=== PATIENT | male | born 1970 ===

== ENCOUNTER 2017-10-25 23:57 | Emergency (ER) | payer OTHER ==
[2017-10-26 00:09] VITALS: BMI 30.2
[2017-10-26 00:10] VITALS: TEMP 98.4
[2017-10-26] MEDS ORDERED: Labetalol 5 mg/ml Inj 20ML IVP STA (00:30)
[2017-10-26 01:10] LABS: BASO # 0.1 K/uL (0.0-0.2); BASO % 0.7 % (0.0-2.0); EOS # 0.2 K/uL (0.0-0.7); EOS % 2.8 % (0.0-4.0); HEMOGLOBIN 16.4 g/dL (12.0-18.0); LYMPH # 2.2 K/uL (1.0-4.3); MEAN CELL VOLUME 85.6 fl (80.0-94.0); MEAN CORPUSCULAR HEMOGLOBIN 29.2 pg (27.0-31.0); MEAN CORPUSCULAR HGB CONC 34.1 g/dL (33.0-37.0); MEAN PLATELET VOLUME 10.3 fl (7.2-11.7); MONO # 0.6 K/uL (0.0-0.8); MONO % 6.9 % (0.0-10.0); NEUT % 62.6 % (50.0-75.0); NRBC % 0.1 % (0.0-0.0); RBC 5.62 Mil/uL (4.40-5.90); RED CELL DISTRIBUTION WIDTH 13.1 % (11.5-14.5)
[2017-10-26 01:16] LABS: ALB/GLOB RATIO 1.3 (1.0-2.1); ALBUMIN 4.6 g/dL (3.5-5.0); ALT/SGPT 44 U/L (21-72); AST/SGOT 28 U/L (17-59); BLOOD UREA NITROGEN 18 mg/dl (9-20); GFR AFRICAN-AMERICAN > 60; GFR NON-AFRICAN AMERICAN > 60
[2017-10-26 01:23] VITALS: O2SAT 99
[2017-10-26 01:33] LABS: INR 0.9 (0.9-1.2); PARTIAL THROMBOPLASTIN TIME 35.1 Seconds (25.6-37.1); PROTHROMBIN TIME 10.2 Seconds (9.8-13.1)
[2017-10-26 02:28] VITALS: BP 158/97; PULSE 70; RESP 17
--- NOTE | 2017-10-26 02:32 | ED PDOC ---
HPI: General Adult Time Seen by Provider: 10/26/17 00:18 Chief Complaint (Nursing): Weakness/Neurological Deficit Chief Complaint (Provider): Left facial droop History Per: Patient History/Exam Limitations: no limitations Onset/Duration Of Symptoms: Hrs (x10) Current Symptoms Are (Timing): Still Present Additional Complaint(s): 47 year old male, with a past medical history of HTN and diabetes non- compliant with medication for past 1.5 years, who presents to the ED for evaluation of left facial droop associated with numbness since 14:00. Patient also reports trouble closing left eye. Denies any visual changes, headache, weakness, disturbances in gait, trouble with speech, or difficulty swallowing. PMD: None provided Past Medical History Reviewed: Historical Data, Nursing Documentation, Vital Signs Vital Signs: Last Vital Signs Temp 98.4 F 10/26/17 00:20 Pulse 70 10/26/17 02:27 Resp 17 10/26/17 02:27 BP 158/97 H 10/26/17 02:27 Pulse Ox 99 10/26/17 02:53 - Medical History PMH: Diabetes, HTN Denies: Chronic Kidney Disease - Surgical History Surgical History: No Surg Hx - Family History Family History: States: Unknown Family Hx - Social History Current smoker - smoking cessation education provided: No Alcohol: None Drugs: Denies - Home Medications Home Medications: Ambulatory Orders Medication Instructions Recorded Methylprednisolone [Medrol Dosepak] 4 mg PO ASDIR #1 pkg 10/26/17 Peg 400/Hypromellose/Glycerin 2 drop OS Q4 PRN #15 ml 10/26/17 [Artificial Tears Drops] Valacyclovir HCl [Valtrex] 1,000 mg PO TID #21 tablet 10/26/17 amLODIPine [Norvasc] 10 mg PO QAM #10 tab 10/26/17 metFORMIN [glucOPHAGE] 500 mg PO BID #20 tab 10/26/17 - Allergies Allergies/Adverse Reactions: Allergies Allergy/AdvReac Type Severity Reaction Status Date / Time No Known Allergies Allergy Verified 10/26/17 00:21 Review of Systems ROS Statement: Except As Marked, All Systems Reviewed And Found Negative (as per HPI) Eyes: Negative for: Vision Change Neurological: Positive for: Numbness, Other (left facial droop). Negative for: Weakness, Headache Physical Exam - Reviewed Nursing Documentation Reviewed: Yes Vital Signs Reviewed: Yes - Physical Exam Appears: Positive for: Non-toxic, No Acute Distress Head Exam: Positive for: ATRAUMATIC, NORMAL INSPECTION, NORMOCEPHALIC Skin: Positive for: Normal Color, Warm, Dry. Negative for: Rash Eye Exam: Positive for: EOMI, Normal appearance, PERRL Neck: Positive for: Normal, Painless ROM, Supple Cardiovascular/Chest: Positive for: Regular Rate, Rhythm. Negative for: Murmur Respiratory: Positive for: Normal Breath Sounds. Negative for: Respiratory Distress Gastrointestinal/Abdominal: Positive for: Normal Exam, Bowel Sounds, Soft. Negative for: Tenderness Back: Positive for: Normal Inspection. Negative for: L CVA Tenderness, R CVA Tenderness, Vertebral Tenderness Extremity: Positive for: Normal ROM. Negative for: Pedal Edema, Deformity Neurologic/Psych: Positive for: Alert, packing and shipping clerk II-XII, Oriented (x3), Facial Droop ( left, asymmetric smile, flattening of nasolabial fold). Negative for: Motor/ Sensory Deficits, Cerebellar Tests, Gait, Aphasia - Laboratory Results Result Diagrams: 10/26/17 01:03 10/26/17 01:03 - ECG O2 Sat by Pulse Oximetry: 99 (RA) Pulse Ox Interpretation: Normal - Critical Care Total Time (In Min): 30 Medical Decision Making Medical Decision Making: Time: 00:21 Initial Impression: 47 year old male with left facial droop consistent with Riley 's palsy Plan: --CT Head w/o contrast --EKG --CMP --TSH --CBC w/ differential --Erythrocyte sedimentation --PTT --PT --Trandate 20 mg IVP --Heplock insertion --Accucheck --[place] --RPR --Reevaluation --Patient's blood pressure is significantly deranged. Time: 01:08 CT Head Findings: Brain: Cerebral and cerebellar volume loss. Mild Patchy hypodensity is seen in the periventricular and subcortical white matter. No hemorrhage. Ventricles: Unremarkable. No ventriculomegaly. Bones/joints: Unremarkable. No acute fracture. Soft tissues: Unremarkable. Sinuses: Unremarkable. No acute sinusitis. Mastoid air cells: Unremarkable. No mastoid effusion. Other findings: Minimal patchy Perez disease. IMPRESSION: No evidence of an acute intracranial hemorrhage, midline shift or mass effect is identified. Changes of an acute infarct may not be visible on CT for up to 24 to 48 hours. If this is of clinical concern, a follow up examination and/or MRI may be of benefit. Time: 02:15 Clinical Impression: Riley's palsy and hypertensive urgency --Solu-Medrol --Labs reviewed and no clinically significant abnormalities were found. Blood pressure shows marked improvement. Patient will be discharged with Rx for Valtrex. Glucophage, Norvasc, Medrol, and artificial teardrops. Patient was advised to follow up with PMD. Return precautions were provided. Scribe Attestation: Documented by Red Logan, acting as a scribe for Omar Mccoy MD. Provider Scribe Attestation: All medical record entries made by the Scribe were at my direction and personally dictated by me. I have reviewed the chart and agree that the record accurately reflects my personal performance of the history, physical exam, medical decision making, and the department course for this patient. I have also personally directed, reviewed, and agree with the discharge instructions and disposition. Disposition - Clinical Impression Clinical Impression: Riley's palsy, Diabetes mellitus, Accelerated hypertension - Patient ED Disposition Is Patient to be Admitted: No Counseled Patient/Family Regarding: Studies Performed, Diagnosis, Need For Followup, Rx Given - Disposition Referrals: Manish Castaneda MD [Staff Provider] - Disposition: Routine/Home Disposition Time: 02:15 Condition: STABLE Prescriptions: amLODIPine [Norvasc] 10 mg PO QAM #10 tab metFORMIN [glucOPHAGE] 500 mg PO BID #20 tab Methylprednisolone [Medrol Dosepak] 4 mg PO ASDIR #1 pkg Peg 400/Hypromellose/Glycerin [Artificial Tears Drops] 2 drop OS Q4 PRN #15 ml PRN Reason: Dry Eyes Valacyclovir HCl [Valtrex] 1,000 mg PO TID #21 tablet Instructions: Riley Palsy (ED), Hypertension (ED) Forms: [facility] (Danish) Print Language: DANISH
--- NOTE | 2017-10-26 08:56 | CT ---
PROCEDURE: CT HEAD WITHOUT CONTRAST. HISTORY: facial droop COMPARISON: None available. TECHNIQUE: Axial computed tomography images were obtained through the head/brain without intravenous contrast. Radiation dose: Total exam DLP = 848.46 mGy-cm. This CT exam was performed using one or more of the following dose reduction techniques: Automated exposure control, adjustment of the mA and/or kV according to patient size, and/or use of iterative reconstruction technique. FINDINGS: HEMORRHAGE: No intracranial hemorrhage. BRAIN: Normal mendez-white matter differentiation and density are appreciated throughout the cerebrum and cerebellum with the brainstem appearing unremarkable as well. There is no mass effect. There is no suspicious extra-axial fluid collection and the midline brain anatomy appears diffusely unremarkable. VENTRICLES: Unremarkable. No hydrocephalus. CALVARIUM: Unremarkable. PARANASAL SINUSES: Limited mucosal inflammatory changes seen affecting multiple bilateral ethmoid air cells as well as the left sphenoid sinus. MASTOID AIR CELLS: Unremarkable as visualized. No inflammatory changes. OTHER FINDINGS: None. IMPRESSION: Unremarkable unenhanced CT of the Head. Follow-up CT or MRI are available if clinically warranted.
--- NOTE | 2017-10-26 21:47 | CARD ---
APPROVED REPORT EKG Measurement Heart [id number] <Conclusion> Normal sinus rhythm Possible Left atrial enlargement Incomplete right bundle branch block Left anterior fascicular block Left ventricular hypertrophy with repolarization abnormality Inferior infarct, age undetermined Abnormal ECG
== END 2017-10-26 02:50 | disposition home or self-care (01) ==
LOC: H.ER 23:57
DX: G51.0 Bell's palsy (principal); E11.9 Type 2 diabetes mellitus without complications; I10 Essential (primary) hypertension; Z79.84 Long term (current) use of oral hypoglycemic drugs
CPT/HCPCS: 70450; 80053; 82948; 84443; 85025; 85610; 85651; 85730; 86308; 86592; 93005; 96374; 96375; 99285; J2405; J2930

== ENCOUNTER 2017-10-30 22:13 | Emergency (ER) | payer OTHER ==
[2017-10-30 22:14] VITALS: BMI 30.2
[2017-10-30 22:43] VITALS: RESP 17; TEMP 98.5
--- NOTE | 2017-10-30 23:10 | ED PDOC ---
HPI: Skin/Bite Injury Time Seen by Provider: 10/30/17 22:44 Chief Complaint (Nursing): Abnormal Skin Integrity Chief Complaint (Provider): Rash History Per: Patient Additional Complaint(s): Pt is a 47 ambulated to ED for evaluation of diffuse rash since this morning. No SOB, dyspnea Past Medical History Vital Signs: Last Vital Signs Temp 98.5 F 10/30/17 22:37 Pulse 80 10/30/17 22:37 Resp 17 10/30/17 22:37 BP 179/102 H 10/30/17 22:37 Pulse Ox 98 10/30/17 22:37 - Medical History PMH: Diabetes, HTN Denies: Chronic Kidney Disease - Family History Family History: States: Unknown Family Hx - Home Medications Home Medications: Ambulatory Orders Medication Instructions Recorded Methylprednisolone [Medrol Dosepak] 4 mg PO ASDIR #1 pkg 10/26/17 Peg 400/Hypromellose/Glycerin 2 drop OS Q4 PRN #15 ml 10/26/17 [Artificial Tears Drops] Valacyclovir HCl [Valtrex] 1,000 mg PO TID #21 tablet 10/26/17 amLODIPine [Norvasc] 10 mg PO QAM #10 tab 10/26/17 metFORMIN [glucOPHAGE] 500 mg PO BID #20 tab 10/26/17 - Allergies Allergies/Adverse Reactions: Allergies Allergy/AdvReac Type Severity Reaction Status Date / Time No Known Allergies Allergy Verified 10/30/17 22:43 - ECG O2 Sat by Pulse Oximetry: 98 Disposition - Disposition
[2017-10-30 23:19] VITALS: PULSE 79; O2SAT 99
[2017-10-31 00:14] VITALS: BP 153/100
== END 2017-10-31 00:16 | disposition home or self-care (01) ==
LOC: H.ER 22:13
DX: R21 Rash and other nonspecific skin eruption (principal)

== ENCOUNTER 2017-11-12 13:26 | Emergency (ER) | payer SELFPAY ==
[2017-11-12 13:26] VITALS: BMI 30.2
[2017-11-12 13:32] VITALS: BP 157/91; PULSE 85; RESP 20; TEMP 98.6; O2SAT 96
--- NOTE | 2017-11-12 14:38 | ED PDOC ---
HPI: CCC, URI, Sore Throat Time Seen by Provider: 11/12/17 14:26 Chief Complaint (Nursing): Cough, Cold, Congestion Chief Complaint (Provider): Cough History Per: Patient History/Exam Limitations: no limitations Onset/Duration Of Symptoms: Days (7) Current Symptoms Are (Timing): Still Present Additional Complaint(s): Cough, nasal congestion, runny nose. Body aches. No fever, neck pain, sore throat. No chest pain, dyspnea. No abd pain. No back pain. Has L facial droop for 3 weeks for which he has been evaluated and treated and following the clinic. Past Medical History Reviewed: Historical Data, Nursing Documentation, Vital Signs Vital Signs: Last Vital Signs Temp 98.6 F 11/12/17 13:29 Pulse 85 11/12/17 13:29 Resp 20 11/12/17 13:29 BP 157/91 H 11/12/17 13:29 Pulse Ox 96 11/12/17 13:29 - Medical History PMH: Diabetes, HTN Denies: Chronic Kidney Disease Other PMH: bells palsy - Surgical History Surgical History: No Surg Hx - Family History Family History: States: Unknown Family Hx - Living Arrangements Living Arrangements: With Family - Social History Alcohol: None Drugs: Denies - Home Medications Home Medications: Ambulatory Orders Medication Instructions Recorded Methylprednisolone [Medrol Dosepak] 4 mg PO ASDIR #1 pkg 10/26/17 Peg 400/Hypromellose/Glycerin 2 drop OS Q4 PRN #15 ml 10/26/17 [Artificial Tears Drops] Valacyclovir HCl [Valtrex] 1,000 mg PO TID #21 tablet 10/26/17 amLODIPine [Norvasc] 10 mg PO QAM #10 tab 10/26/17 metFORMIN [glucOPHAGE] 500 mg PO BID #20 tab 10/26/17 DiphenhydrAMINE [Benadryl] 50 mg PO Q4 PRN #30 cap 10/30/17 Benzonatate [Tessalon Perles] 100 mg PO BID PRN 5 Days sgl 11/12/17 Ibuprofen [Motrin] 600 mg PO TID 7 Days tab 11/12/17 - Allergies Allergies/Adverse Reactions: Allergies Allergy/AdvReac Type Severity Reaction Status Date / Time No Known Allergies Allergy Verified 11/12/17 13:28 Review of Systems ROS Statement: Except As Marked, All Systems Reviewed And Found Negative ENT: Positive for: Nose Pain, Nose Discharge, Nose Congestion Respiratory: Positive for: Cough. Negative for: Shortness of Breath, Sputum Neurological: Positive for: Numbness (L face ongoing for 3 weeks) Physical Exam - Reviewed Nursing Documentation Reviewed: Yes Vital Signs Reviewed: Yes - Physical Exam Appears: Positive for: Non-toxic, No Acute Distress Head Exam: Positive for: ATRAUMATIC, NORMAL INSPECTION, NORMOCEPHALIC Skin: Positive for: Normal Color, Warm, DRY Eye Exam: Positive for: EOMI, PERRL ENT: Positive for: Nasal Congestion. Negative for: Pharyngeal Erythema, Tonsillar Exudate Neck: Positive for: Normal, Painless ROM, Supple Cardiovascular/Chest: Positive for: Regular Rate, Rhythm Respiratory: Positive for: CNT, Normal Breath Sounds Gastrointestinal/Abdominal: Positive for: Normal Exam, Bowel Sounds, Soft. Negative for: Tenderness Back: Positive for: Normal Inspection. Negative for: L CVA Tenderness, R CVA Tenderness Extremity: Positive for: Normal ROM. Negative for: Tenderness, Pedal Edema Neurologic/Psych: Positive for: Alert, Oriented. 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 AAOx3. Pain free. Tolerated po. Fu with pcp. Disposition - Clinical Impression Clinical Impression: URI (upper respiratory infection) - Patient ED Disposition Is Patient to be Admitted: No Counseled Patient/Family Regarding: Studies Performed, Diagnosis, Need For Followup, Rx Given - Disposition Referrals: [facility], [facility] [Outside] - 11/15/17 Disposition: Routine/Home Disposition Time: 14:20 Condition: STABLE Additional Instructions: Return if not better in 3 days. Prescriptions: Benzonatate [Tessalon Perles] 100 mg PO BID PRN 5 Days sgl PRN Reason: Cough Ibuprofen [Motrin] 600 mg PO TID 7 Days tab Instructions: Upper Respiratory Infection (ED) Print Language: KAZAKH
== END 2017-11-12 15:42 | disposition home or self-care (01) ==
LOC: H.ER 13:26
DX: J06.9 Acute upper respiratory infection, unspecified (principal)